=== PATIENT | female | born 1980 | race American Indian/Alaskan Native ===

== ENCOUNTER → 2016-11-01 | Outpatient (REF) ==
[~2016-11-01] MED LIST: AMOXICILLIN875 MG PO; CETIRIZINE; COLACE 100100 MG/CAP PO; FISH OIL 1000MG1 CAP PO; FLEXERIL10 MG PO; GLUCOPHAGE XR500 M1 PO; JANUVIA 100MG100 MG PO; LEVEMIR100 U/ML SQ; LORTAB 5/500 501 TAB PO; NORCO 325 MG-51 TAB PO; OXY IR5 MG; PEPCID 20MG TAB20 MG PO; PERCOCET 325 MG1 TA2 PO; PREDNISONE20 MG PO; PRENATAL PO; SOMA 350MG350 MG/TAB; SYNTHROID0.088 MG/T PO; SYNTHROID0.125 MG/T; ZOFRAN 4MG T4 MG/TAB PO; ZYRTEC 10MG10 MG PO
== END ==
LOC: WSOH 17:00
DX: Z02.89 Encounter for other administrative examinations (principal)

== ENCOUNTER 2018-02-11 18:38 | Emergency (ER) | payer OTHER ==
[~2018-02-11] VITALS: Ht 170.2 cm; Wt 152.3 kg
[2018-02-11 18:43] VITALS: TEMP 98.7
[2018-02-11] MEDS ORDERED: ZOFRAN ODT4 MG PO (19:07)
[2018-02-11] MEDS ORDERED: FLEXERIL 1010 MG/TAB PO (19:07)
[2018-02-11] MEDS ORDERED: HUMULIN 70/30 PE3 ML ×2 (19:25→19:26)
[2018-02-11] MEDS ORDERED: MULTIPLE VITAMI1 CAP PO (19:27)
[2018-02-11 20:19] LABS: COLLECTION METHOD CLEAN CATCH
[2018-02-11 20:20] VITALS: BP 135/91; PULSE 77
[2018-02-11 20:25] LABS: MUCOUS Present /lpf; PH 5 (5-8); SQUAMOUS EPITHELIAL 0-2 /hpf; URINE APPEARANCE Clear; URINE BACTERIA Rare /hpf; URINE BILIRUBIN Negative (NEGATIVE); URINE BLOOD Negative (NEGATIVE); URINE COLOR Yellow; URINE GLUCOSE Negative (NEGATIVE); URINE KETONE Negative (NEGATIVE); URINE LEUKOCYTE ESTERASE Negative (NEGATIVE); URINE NITRATE Negative (NEGATIVE); URINE PROTEIN(semi-quant) Negative (NEGATIVE); URINE RBC 0-2 /hpf; URINE UROBILINOGEN Negative (NEGATIVE)
== END 2018-02-11 20:20 | disposition home or self-care (01) ==
LOC: COL.ER 18:38
PROVIDERS: Physician Assistant
DX: M54.9 Dorsalgia, unspecified (principal); Z79.4 Long term (current) use of insulin; Z79.899 Other long term (current) drug therapy; X50.1XXA Overexertion from prolonged static or awkward postures, initial encounter; Y99.0 Civilian activity done for income or pay
CPT/HCPCS: J1885; J2360

== ENCOUNTER 2018-03-26 14:17 | Outpatient (RCR) | payer OTHER ==
[~2018-03-26 14:17] MED LIST changes: +FLEXERIL 1010 MG/TAB PO; +HUMULIN 70/30 PE3 ML; +MULTIPLE VITAMI1 CAP PO; +ZOFRAN ODT4 MG PO
== END 2018-04-22 09:57 | disposition home or self-care (01) ==
LOC: WSOH 14:17
DX: S33.6XXA Sprain of sacroiliac joint, initial encounter (principal); M46.1 Sacroiliitis, not elsewhere classified; M62.830 Muscle spasm of back; E66.01 Morbid (severe) obesity due to excess calories; X50.0XXA Overexertion from strenuous movement or load, initial encounter; Y93.F9 Activity, other caregiving; Y92.239 Unspecified place in hospital as the place of occurrence of the external cause; Y99.0 Civilian activity done for income or pay; Z87.891 Personal history of nicotine dependence; Z79.4 Long term (current) use of insulin; Z79.899 Other long term (current) drug therapy

== ENCOUNTER → 2020-02-24 | Outpatient (REF) | LOC: WSOH 11:06 | DX: Z02.89 Encounter for other administrative examinations (principal) ==

== ENCOUNTER → 2021-05-19 | Outpatient (CLI) | payer OTHER ==
[~2021-05-19] MED LIST changes: +CRUTCHES MC
== END ==
LOC: COL.RAD 11:38
DX: M17.12 Unilateral primary osteoarthritis, left knee (principal); M25.862 Other specified joint disorders, left knee